=== PATIENT | female | born 1970 ===

== ENCOUNTER 2023-01-14 10:45 | Inpatient (IN) | payer OTHER ==
[~2023-01-14] VITALS: Ht 157.5 cm; Wt 76.2 kg
[~2023-01-14 10:45] MED LIST: FIORICET 50-301 EACH; LISINOPRIL5 MG; ZESTRIL5 MG
[2023-01-14] MEDS ORDERED: HYDROCHLOROTHIA25 MG PO (14:14)
[2023-01-14] MEDS ORDERED: METFORMIN HCL500 M3 PO (14:14)
[2023-01-14] MEDS ORDERED: AVAPRO150 MG PO (14:14)
[2023-01-14] MEDS ORDERED: VITAMIN D250 MC1 PO (14:15)
[2023-01-18] MEDS ORDERED: VITAMIN D31250 MCG (13:23)
[2023-01-18] MEDS ORDERED: ROSUVASTATIN CA10 MG (13:23)
[2023-01-20] MEDS ORDERED: TRAM1TAB98 PO (12:22)
[2023-01-20] MEDS ORDERED: INTESTINEX680 M1 PO (12:23)
[2023-01-20] MEDS ORDERED: PEPCID AC20 MG PO (12:23)
== END 2023-01-20 13:24 | disposition home or self-care (01) | DRG 331 ==
LOC: O/R 01-17 07:42 → SURH 01-17 10:45 → SURG 01-17 13:39 → SURH 01-17 16:15 → SURG 01-20 13:24
PROVIDERS: ADMIT Surgery; ATTEND Surgery
PROC: 0DBP4ZZ Excision of Rectum, Percutaneous Endoscopic Approach (ICD-10-PCS; 2023-01-17)
PROC: 0DTU4ZZ Resection of Omentum, Percutaneous Endoscopic Approach (ICD-10-PCS; 2023-01-17)
PROC: 0DJD8ZZ Inspection of Lower Intestinal Tract, Via Natural or Artificial Opening Endoscopic (ICD-10-PCS; 2023-01-17)
PROC: 0DTN4ZZ Resection of Sigmoid Colon, Percutaneous Endoscopic Approach (ICD-10-PCS; principal; 2023-01-17 16:15)
DX: K57.32 Diverticulitis of large intestine without perforation or abscess without bleeding (principal); N73.6 Female pelvic peritoneal adhesions (postinfective); N99.4 Postprocedural pelvic peritoneal adhesions; R10.32 Left lower quadrant pain; I10 Essential (primary) hypertension